=== PATIENT | female | born 1975 | race Two or more races ===

== ENCOUNTER → 2020-02-14 | Emergency (ER) | payer OTHER ==
[~2020-02-14] VITALS: Ht 154.9 cm; Wt 79.5 kg
[~2020-02-14] MED LIST: ACETAMINOPHEN 325 MG TAB PO ONE; ACETAMINOPHEN 500 MG TAB PO ONE
[2020-02-14 20:14] VITALS: BP 136/74
== END | disposition home or self-care (01) ==
LOC: ER 18:04
DX: U07.1 COVID-19 (principal)
CPT/HCPCS: 71045; 87635

== ENCOUNTER 2020-02-17 15:34 | Inpatient (IN) | payer OTHER ==
[~2020-02-17] VITALS: Ht 154.9 cm; Wt 72.2 kg
[2020-02-17] MEDS ORDERED: DOXYCYCLINE 100 MG TAB/CAP PO ONE (16:45)
[2020-02-17] MEDS ORDERED: DexAMETHasone SOD PHOS 10MG/1ML VIAL INJ IV ONE (16:45)
[2020-02-17 17:01] LABS: Basophils # (auto) 0 10 ^3/uL (0-0.2); Basophils % (auto) 0.1 % (0.0-2.0); Eosinophils # (auto) 0 10 ^3/uL (0-0.8); Monocytes # (auto) 0.4 10 ^3/uL (0-1.3); Red Cell Distribution Width 16.2 % (11.8-14.3)
[2020-02-17 17:03] LABS: Hematocrit 37.8 % (36.0-46.0); Hemoglobin 12.3 g/dL (12.2-16.2); Lymphocytes # (auto) 0.6 10 ^3/uL (0.4-5.4); Lymphocytes % (auto) 8.1 % (10.0-50.0); Mean Corpuscular Hemoglobin 25.3 pg (28.0-32.0); Mean Corpuscular Hgb Conc. 32.7 g/dL (32.0-36.0); Mean Corpuscular Volume 77.3 fL (80.0-100.0); Monocytes % (auto) 5.1 % (0.0-12.0); Neutrophils # (auto) 6.2 10 ^3/uL (1.6-8.6); Neutrophils % (auto) 86.7 % (37.0-80.0); Platelet Count (auto) 339 10^3/uL (140-450); Red Blood Cells 4.89 10^6/uL (4.0-5.20); White Blood Cell 7.1 10^3/uL (4.4-10.8)
[2020-02-17 17:05] LABS: Alanine Aminotransferase 45 U/L (13-56); Albumin 3.5 g/dL (3.4-5.0); Anion Gap 10 (5-15); Blood Urea Nitrogen 9 mg/dL (7-18); Calcium 8.7 mg/dL (8.5-10.1); Carbon Dioxide 25 mmol/L (21-32); Chloride 99 mmol/L (98-107); Glucose 240 mg/dL (74-106); INR 0.91 (0.9-1.15); Magnesium 2.5 mg/dL (1.6-2.6); Partial Thromboplastin Time 30.4 sec (23.64-32.05); Potassium 3.1 mmol/L (3.5-5.1); Sodium 134 mmol/L (136-145)
[2020-02-17 17:10] LABS: Alkaline Phosphatase 100 U/L (45-117); Aspartate Aminotransferase 34 U/L (15-37); BUN/Creatinine Ratio 11.5; Bilirubin, Total 0.4 mg/dL (0.2-1.0); GFR African American 102 mL/min; GFR Non-African American 85 mL/min; Total Protein 9.1 g/dL (6.4-8.2)
[2020-02-17] MEDS ORDERED: HYDROcodone-ACET 5/325MG TAB PO PRN (17:15)
[2020-02-17] MEDS ORDERED: TEMAZEPAM 15 MG CAP PO PRN (17:15)
[2020-02-17] MEDS ORDERED: HYDROmorphone HCL 2 MG/ML VL IV PRN ×2 (17:15→17:30)
[2020-02-17] MEDS ORDERED: MORPHINE SULF INJ 2 MG/ML SYRINGE 1ML IV PRN ×2 (17:15)
[2020-02-17] MEDS ORDERED: ACETAMINOPHEN 325 MG TAB PO PRN (17:15)
[2020-02-17] MEDS ORDERED: NITROGLYCERIN 0.4 MG SL TAB SL PRN (17:15)
[2020-02-17] MEDS ORDERED: POTASSIUM CHL 20 Meq TABLET PO ONE (17:30)
[2020-02-17 17:39] LABS: CRP High Sensitivity 12.2 mg/dL (< 0.3)
[2020-02-17] MEDS: ACETAMINOPHEN 500 MG TAB PO PRN (18:43)
[2020-02-17] MEDS ORDERED: DEXTROSE (50%) 50ML SYRG IV PRN (21:45)
[2020-02-17] MEDS: SODIUM CHLOR 0.9% PF (SALINE LOCK) 10ML VIAL/SYR IV SCH (21:45)
[2020-02-17] MEDS: DOXYCYCLINE 100 MG TAB/CAP PO SCH (21:45)
[2020-02-17] MEDS: ENOXAPARIN SOD 40 MG/0.4 ML SYRINGE SC SCH (21:45)
[2020-02-17 22:00] VITALS: BP 137/86
[2020-02-17] MEDS ORDERED: cefTRIAXone 1GM/50ML D5W 50 ML IV ONE (22:00)
[2020-02-17] MEDS: ALBUTEROL SULF HFA 90MCG INH 200DOSE IN SCH (22:00)
[2020-02-17] MEDS: ACCU-CHEK COMFORT CURVE STRIP VI SCH (22:34)
[2020-02-17] MEDS ORDERED: REMDESIVIR 200 MG in NS 210ml LOADING DOSE ADULT IV ONE (22:45)
[2020-02-17] MEDS: InsuLIN REG 1unit/0.01ml Soln (100units/ml) SC SCH (22:46)
[2020-02-17 23:55] VITALS: BP 137/82
[2020-02-18] VITALS (10 sets, daily range): BP systolic 125–145; BP diastolic 69–85
[2020-02-18 06:02] LABS: Basophils # (auto) 0 10 ^3/uL (0-0.2); Eosinophils # (auto) 0 10 ^3/uL (0-0.8); Lymphocytes # (auto) 0.5 10 ^3/uL (0.4-5.4); Lymphocytes % (auto) 7.7 % (10.0-50.0); Monocytes # (auto) 0.3 10 ^3/uL (0-1.3); Neutrophils # (auto) 5.6 10 ^3/uL (1.6-8.6); Red Blood Cells 4.68 10^6/uL (4.0-5.20); White Blood Cell 6.4 10^3/uL (4.4-10.8)
[2020-02-18 06:04] LABS: Basophils % (auto) 0.2 % (0.0-2.0); Hematocrit 36.5 % (36.0-46.0); Hemoglobin 11.7 g/dL (12.2-16.2); Mean Corpuscular Volume 78.1 fL (80.0-100.0); Monocytes % (auto) 4.5 % (0.0-12.0); Neutrophils % (auto) 87.6 % (37.0-80.0); Platelet Count (auto) 342 10^3/uL (140-450); Red Cell Distribution Width 16.1 % (11.8-14.3)
[2020-02-18] MEDS ORDERED: FAMOTIDINE 20 MG TAB PO ONE (06:15)
[2020-02-18] MEDS ORDERED: POLYETHYLENE GLYCOL 17 GM PWDR PO PRN (06:15)
[2020-02-18 06:27] LABS: Albumin 2.8 g/dL (3.4-5.0); BUN/Creatinine Ratio 17.6; Calcium 8.4 mg/dL (8.5-10.1); Potassium 4.1 mmol/L (3.5-5.1)
[2020-02-18 06:30] LABS: Bilirubin, Total 0.3 mg/dL (0.2-1.0); Total Protein 8.1 g/dL (6.4-8.2)
[2020-02-18] MEDS: ALBUTEROL SULF HFA 90MCG INH 200DOSE IN SCH ×3 (06:35→21:23)
[2020-02-18] MEDS: ACCU-CHEK COMFORT CURVE STRIP VI SCH ×4 (06:36→21:40)
[2020-02-18] MEDS: SODIUM CHLOR 0.9% PF (SALINE LOCK) 10ML VIAL/SYR IV SCH ×3 (06:36→22:00)
[2020-02-18] MEDS: InsuLIN REG 1unit/0.01ml Soln (100units/ml) SC SCH ×4 (06:37→21:41)
[2020-02-18 06:53] LABS: Cholesterol 141 mg/dL (< 200); HDL Cholesterol 40 mg/dL (40-59); LDL Cholesterol 78 mg/dL (< 100); Triglycerides 206 mg/dL (< 150)
[2020-02-18] MEDS: ACETAMINOPHEN 500 MG TAB PO PRN ×2 (06:56→16:17)
[2020-02-18 08:48] LABS: Urine Bacteria NONE SEEN /hpf (None Seen); Urine Blood 2+ /uL (Negative); Urine Mucus FEW (None Seen); Urine Specific Gravity 1.028 (1.001-1.035); Urine WBC 2 /hpf (0 - 5)
[2020-02-18] MEDS: methylPREDNISolone SOD SUCC 40 MG/ML VL IV SCH ×2 (09:08→21:22)
[2020-02-18] MEDS: DOXYCYCLINE 100 MG TAB/CAP PO SCH ×2 (09:09→21:22)
[2020-02-18] MEDS: FAMOTIDINE 20 MG TAB PO SCH (09:09)
[2020-02-18] MEDS: ZINC SULFATE 220mg CAP or TAB PO SCH (09:09)
[2020-02-18] MEDS: ASCORBIC ACID 1,000 MG TAB PO SCH (09:09)
[2020-02-18] MEDS: ENOXAPARIN SOD 40 MG/0.4 ML SYRINGE SC SCH ×2 (09:10→21:22)
[2020-02-18] MEDS ORDERED: DexAMETHasone SOD PHOS 4 MG/1ML SDV INJ IV SCH (10:00)
[2020-02-18] MEDS ORDERED: CHOLECALCIFEROL (VITD3) 1,000UNIT=25mCg TAB PO SCH (10:00)
[2020-02-18] MEDS ORDERED: CHOLECALCIFEROL (VITD3) 1,000UNIT=25mCg TAB PO ONE (10:30)
[2020-02-18] MEDS: ERGOCALCIFEROL 50,000 UNIT(1.25MG) CAP PO SCH (11:23)
[2020-02-18 11:38] LABS: Folate (Folic Acid) 14.47 ng/mL (5.38-24)
[2020-02-18] MEDS: REMDESIVIR 100mg in NS 230ml DAILYx4DAYS (NO VENT) IV SCH (17:26)
[2020-02-18] MEDS: cefTRIAXone 1GM/50ML D5W 50 ML IV SCH (21:23)
[2020-02-18] MEDS: ONDANSETRON HCL 4 MG/2 ML VIAL IV PRN (22:35)
[2020-02-19 05:00] VITALS: BP 127/74
[2020-02-19] MEDS: ONDANSETRON HCL 4 MG/2 ML VIAL IV PRN ×2 (05:01→05:03)
[2020-02-19] MEDS: ALBUTEROL SULF HFA 90MCG INH 200DOSE IN SCH ×3 (05:30→21:40)
[2020-02-19] MEDS: SODIUM CHLOR 0.9% PF (SALINE LOCK) 10ML VIAL/SYR IV SCH ×3 (06:19→21:34)
[2020-02-19] MEDS ORDERED: FUROSEMIDE 40 MG/4 ML VIAL IV SCH (07:00)
[2020-02-19] MEDS: InsuLIN REG 1unit/0.01ml Soln (100units/ml) SC SCH ×4 (08:29→21:40)
[2020-02-19] MEDS: ACCU-CHEK COMFORT CURVE STRIP VI SCH ×4 (08:29→21:36)
[2020-02-19 08:34] LABS: Basophils # (auto) 0 10 ^3/uL (0-0.2); Eosinophils # (auto) 0 10 ^3/uL (0-0.8); Lymphocytes # (auto) 0.6 10 ^3/uL (0.4-5.4); Monocytes # (auto) 0.4 10 ^3/uL (0-1.3)
[2020-02-19 08:37] LABS: Basophils % (auto) 0.2 % (0.0-2.0); Hematocrit 36.8 % (36.0-46.0); Lymphocytes % (auto) 7.8 % (10.0-50.0); Mean Corpuscular Hemoglobin 25.5 pg (28.0-32.0); Mean Corpuscular Hgb Conc. 32.6 g/dL (32.0-36.0); Mean Corpuscular Volume 78.3 fL (80.0-100.0); Monocytes % (auto) 5.5 % (0.0-12.0); Neutrophils # (auto) 6.9 10 ^3/uL (1.6-8.6); Neutrophils % (auto) 86.5 % (37.0-80.0); Platelet Count (auto) 468 10^3/uL (140-450); Red Cell Distribution Width 16.2 % (11.8-14.3)
[2020-02-19 08:50] LABS: Albumin 2.9 g/dL (3.4-5.0); Calcium 8.8 mg/dL (8.5-10.1); Potassium 3.5 mmol/L (3.5-5.1)
[2020-02-19 09:00] VITALS: BP 112/68
[2020-02-19 09:03] LABS: BUN/Creatinine Ratio 21.9; Bilirubin, Total 0.3 mg/dL (0.2-1.0); CRP High Sensitivity 11.2 mg/dL (< 0.3); Total Protein 8.5 g/dL (6.4-8.2)
[2020-02-19] MEDS: ZINC SULFATE 220mg CAP or TAB PO SCH (09:34)
[2020-02-19] MEDS: methylPREDNISolone SOD SUCC 40 MG/ML VL IV SCH ×2 (09:34→21:33)
[2020-02-19] MEDS: ENOXAPARIN SOD 40 MG/0.4 ML SYRINGE SC SCH ×2 (09:34→21:34)
[2020-02-19] MEDS: CHOLECALCIFEROL (VITD3) 1,000UNIT=25mCg TAB PO SCH (09:34)
[2020-02-19] MEDS: POTASSIUM CHL 20 Meq TABLET PO SCH (09:34)
[2020-02-19] MEDS: ASCORBIC ACID 1,000 MG TAB PO SCH (09:35)
[2020-02-19] MEDS: FAMOTIDINE 20 MG TAB PO SCH (09:35)
[2020-02-19] MEDS: DOXYCYCLINE 100 MG TAB/CAP PO SCH ×2 (09:35→21:32)
[2020-02-19] MEDS ORDERED: CHOLECALCIFEROL (VITD3) 1,000UNIT=25mCg TAB PO SCH (10:00)
[2020-02-19 12:35] VITALS: BP 127/80
[2020-02-19 17:00] VITALS: BP 138/76
[2020-02-19] MEDS: REMDESIVIR 100mg in NS 230ml DAILYx4DAYS (NO VENT) IV SCH (17:20)
[2020-02-19] MEDS: cefTRIAXone 1GM/50ML D5W 50 ML IV SCH (21:28)
[2020-02-19] MEDS: ACETAMINOPHEN 500 MG TAB PO PRN (21:33)
[2020-02-19 22:00] VITALS: BP 144/87
[2020-02-20] VITALS (7 sets, daily range): BP systolic 119–135; BP diastolic 73–88
[2020-02-20] MEDS: BUDESONIDE (INHALATION) 0.5 MG/2 ML NEB NEB SCH ×3 (00:55→21:15)
[2020-02-20] MEDS: SODIUM CHLOR 0.9% PF (SALINE LOCK) 10ML VIAL/SYR IV SCH ×3 (05:36→22:09)
[2020-02-20 05:50] LABS: Albumin 2.7 g/dL (3.4-5.0); Calcium 8.6 mg/dL (8.5-10.1); Potassium 4.3 mmol/L (3.5-5.1)
[2020-02-20 05:53] LABS: Bilirubin, Total 0.4 mg/dL (0.2-1.0); Total Protein 7.8 g/dL (6.4-8.2)
[2020-02-20] MEDS: ALBUTEROL SULF HFA 90MCG INH 200DOSE IN SCH ×3 (06:17→22:15)
[2020-02-20] MEDS: FUROSEMIDE 40 MG/4 ML VIAL IV SCH (06:32)
[2020-02-20 08:04] LABS: BUN/Creatinine Ratio 29.4
[2020-02-20] MEDS: InsuLIN REG 1unit/0.01ml Soln (100units/ml) SC SCH ×4 (08:30→22:08)
[2020-02-20] MEDS: ACCU-CHEK COMFORT CURVE STRIP VI SCH ×4 (08:41→22:10)
[2020-02-20] MEDS: methylPREDNISolone SOD SUCC 40 MG/ML VL IV SCH ×2 (10:06→22:09)
[2020-02-20] MEDS: ZINC SULFATE 220mg CAP or TAB PO SCH (10:07)
[2020-02-20] MEDS: POTASSIUM CHL 20 Meq TABLET PO SCH (10:07)
[2020-02-20] MEDS: FAMOTIDINE 20 MG TAB PO SCH (10:07)
[2020-02-20] MEDS: CHOLECALCIFEROL (VITD3) 1,000UNIT=25mCg TAB PO SCH (10:08)
[2020-02-20] MEDS: ASCORBIC ACID 1,000 MG TAB PO SCH (10:08)
[2020-02-20] MEDS: ENOXAPARIN SOD 40 MG/0.4 ML SYRINGE SC SCH ×2 (10:08→22:10)
[2020-02-20] MEDS: DOXYCYCLINE 100 MG TAB/CAP PO SCH ×2 (10:08→22:08)
[2020-02-20] MEDS: REMDESIVIR 100mg in NS 230ml DAILYx4DAYS (NO VENT) IV SCH (17:30)
[2020-02-20] MEDS: cefTRIAXone 1GM/50ML D5W 50 ML IV SCH (23:15)
[2020-02-21 05:00] VITALS: BP 125/74
[2020-02-21] MEDS: InsuLIN REG 1unit/0.01ml Soln (100units/ml) SC SCH ×4 (06:17→21:44)
[2020-02-21] MEDS: ACCU-CHEK COMFORT CURVE STRIP VI SCH ×4 (06:18→21:42)
[2020-02-21] MEDS: SODIUM CHLOR 0.9% PF (SALINE LOCK) 10ML VIAL/SYR IV SCH ×3 (06:18→21:41)
[2020-02-21] MEDS: FUROSEMIDE 40 MG/4 ML VIAL IV SCH ×2 (06:18→21:43)
[2020-02-21] MEDS: ALBUTEROL SULF HFA 90MCG INH 200DOSE IN SCH ×2 (06:58→22:00)
[2020-02-21 07:59] LABS: Mean Corpuscular Hemoglobin 25.5 pg (28.0-32.0)
[2020-02-21 08:01] LABS: Hematocrit 43.1 % (36.0-46.0); Hemoglobin 13.6 g/dL (12.2-16.2); Mean Corpuscular Hgb Conc. 31.4 g/dL (32.0-36.0); Mean Corpuscular Volume 81.3 fL (80.0-100.0); Platelet Count (auto) 609 10^3/uL (140-450); Red Blood Cells 5.31 10^6/uL (4.0-5.20); Red Cell Distribution Width 16.5 % (11.8-14.3); White Blood Cell 9.6 10^3/uL (4.4-10.8)
[2020-02-21 08:05] LABS: Band Neutrophils % (manual) 0; Basophils % (manual) 0 (0.0-2.0); Blast Cells 0; Eosinophils % (manual) 0 (0-7); Metamyelocytes % 0; Myelocytes % 0; Promyelocytes % 0; Reactive Lymphocytes 0
[2020-02-21 08:18] LABS: Calcium 8.8 mg/dL (8.5-10.1); Potassium 4.4 mmol/L (3.5-5.1)
[2020-02-21 08:21] LABS: BUN/Creatinine Ratio 29.7; Bilirubin, Total 0.5 mg/dL (0.2-1.0); Total Protein 8.6 g/dL (6.4-8.2)
[2020-02-21 08:32] LABS: Lymphocytes % (manual) 12 (10.0-50.0); Monocytes % (manual) 4 (0-12)
[2020-02-21 09:00] VITALS: BP 90/60
[2020-02-21] MEDS: methylPREDNISolone SOD SUCC 40 MG/ML VL IV SCH ×2 (09:25→21:42)
[2020-02-21] MEDS: DOXYCYCLINE 100 MG TAB/CAP PO SCH ×2 (09:25→21:42)
[2020-02-21] MEDS: ASCORBIC ACID 1,000 MG TAB PO SCH (09:25)
[2020-02-21] MEDS: FAMOTIDINE 20 MG TAB PO SCH (09:25)
[2020-02-21] MEDS: ZINC SULFATE 220mg CAP or TAB PO SCH (09:25)
[2020-02-21] MEDS: POTASSIUM CHL 20 Meq TABLET PO SCH (09:25)
[2020-02-21] MEDS: CHOLECALCIFEROL (VITD3) 1,000UNIT=25mCg TAB PO SCH (09:26)
[2020-02-21] MEDS: ENOXAPARIN SOD 40 MG/0.4 ML SYRINGE SC SCH ×2 (09:26→21:42)
[2020-02-21 11:29] VITALS: BP 94/61
[2020-02-21] MEDS: BUDESONIDE (INHALATION) 0.5 MG/2 ML NEB NEB SCH (11:38)
[2020-02-21 13:00] VITALS: BP 119/76
[2020-02-21 17:00] VITALS: BP 111/68
[2020-02-21] MEDS: REMDESIVIR 100mg in NS 230ml DAILYx4DAYS (NO VENT) IV SCH (17:00)
[2020-02-21] MEDS: cefTRIAXone 1GM/50ML D5W 50 ML IV SCH (21:41)
[2020-02-21 22:00] VITALS: BP 123/70
[2020-02-22] VITALS (11 sets, daily range): BP systolic 96–119; BP diastolic 60–86
[2020-02-22] MEDS: BUDESONIDE (INHALATION) 0.5 MG/2 ML NEB NEB SCH ×2 (00:16→06:55)
[2020-02-22] MEDS: SODIUM CHLOR 0.9% PF (SALINE LOCK) 10ML VIAL/SYR IV SCH ×3 (06:28→22:03)
[2020-02-22] MEDS: ACCU-CHEK COMFORT CURVE STRIP VI SCH ×4 (06:29→22:04)
[2020-02-22] MEDS: FUROSEMIDE 40 MG/4 ML VIAL IV SCH (06:29)
[2020-02-22] MEDS: InsuLIN REG 1unit/0.01ml Soln (100units/ml) SC SCH ×4 (06:37→22:00)
[2020-02-22] MEDS: ALBUTEROL SULF HFA 90MCG INH 200DOSE IN SCH ×3 (06:55→22:08)
[2020-02-22] MEDS: CHOLECALCIFEROL (VITD3) 1,000UNIT=25mCg TAB PO SCH (10:00)
[2020-02-22] MEDS: methylPREDNISolone SOD SUCC 40 MG/ML VL IV SCH ×2 (10:01→22:03)
[2020-02-22] MEDS: DOXYCYCLINE 100 MG TAB/CAP PO SCH (10:01)
[2020-02-22] MEDS: ZINC SULFATE 220mg CAP or TAB PO SCH (10:01)
[2020-02-22] MEDS: POTASSIUM CHL 20 Meq TABLET PO SCH (10:01)
[2020-02-22] MEDS: FAMOTIDINE 20 MG TAB PO SCH (10:01)
[2020-02-22] MEDS: ASCORBIC ACID 1,000 MG TAB PO SCH (10:10)
[2020-02-22] MEDS: ENOXAPARIN SOD 40 MG/0.4 ML SYRINGE SC SCH (10:10)
[2020-02-22] MEDS: ENOXAPARIN SOD 80 MG/0.8ML SYRINGE SC SCH (18:33)
[2020-02-22] MEDS ORDERED: INSULIN LANTUS (GLARGINE) 1 /0.01ml (100units/ml) SC SCH (22:00)
[2020-02-22] MEDS: cefTRIAXone 1GM/50ML D5W 50 ML IV SCH (22:03)
[2020-02-23] MEDS: BUDESONIDE (INHALATION) 0.5 MG/2 ML NEB NEB SCH ×3 (01:40→23:31)
[2020-02-23] MEDS: ACETYLCYSTEINE 20%(200MG/ML) SOL 4ML NEB SCH ×2 (01:40→11:10)
[2020-02-23 05:00] VITALS: BP 104/71
[2020-02-23] MEDS: SODIUM CHLOR 0.9% PF (SALINE LOCK) 10ML VIAL/SYR IV SCH ×3 (06:10→22:20)
[2020-02-23] MEDS: ENOXAPARIN SOD 80 MG/0.8ML SYRINGE SC SCH ×2 (06:19→17:44)
[2020-02-23] MEDS: ACCU-CHEK COMFORT CURVE STRIP VI SCH ×4 (06:19→22:00)
[2020-02-23] MEDS: ALBUTEROL SULF HFA 90MCG INH 200DOSE IN SCH ×3 (06:20→23:31)
[2020-02-23 06:38] LABS: Hemoglobin 11.9 g/dL (12.2-16.2)
[2020-02-23 06:40] LABS: Hematocrit 36.6 % (36.0-46.0); Mean Corpuscular Hemoglobin 25.5 pg (28.0-32.0); Mean Corpuscular Hgb Conc. 32.6 g/dL (32.0-36.0); Mean Corpuscular Volume 78.1 fL (80.0-100.0); Platelet Count (auto) 741 10^3/uL (140-450); Red Blood Cells 4.69 10^6/uL (4.0-5.20); Red Cell Distribution Width 16.2 % (11.8-14.3)
[2020-02-23 06:58] LABS: Band Neutrophils % (manual) 0; Basophils % (manual) 0 (0.0-2.0); Blast Cells 0; Eosinophils % (manual) 0 (0-7); Metamyelocytes % 0; Myelocytes % 0; Promyelocytes % 0; Reactive Lymphocytes 0
[2020-02-23 07:01] LABS: Potassium 5.4 mmol/L (3.5-5.1)
[2020-02-23 07:18] LABS: Albumin 3.1 g/dL (3.4-5.0); BUN/Creatinine Ratio 32.6; Bilirubin, Total 0.4 mg/dL (0.2-1.0); CRP High Sensitivity 1.07 mg/dL (< 0.3); Total Protein 7.7 g/dL (6.4-8.2)
[2020-02-23] MEDS: InsuLIN REG 1unit/0.01ml Soln (100units/ml) SC SCH ×4 (07:37→23:01)
[2020-02-23 07:54] LABS: Lymphocytes % (manual) 9 (10.0-50.0); Monocytes % (manual) 4 (0-12)
[2020-02-23 08:00] VITALS: BP 109/70
[2020-02-23] MEDS ORDERED: FUROSEMIDE 40 MG/4 ML VIAL IV SCH (10:00)
[2020-02-23] MEDS: CHOLECALCIFEROL (VITD3) 1,000UNIT=25mCg TAB PO SCH (10:09)
[2020-02-23] MEDS: ASCORBIC ACID 1,000 MG TAB PO SCH (10:09)
[2020-02-23] MEDS: methylPREDNISolone SOD SUCC 40 MG/ML VL IV SCH ×2 (10:09→22:20)
[2020-02-23] MEDS: ZINC SULFATE 220mg CAP or TAB PO SCH (10:09)
[2020-02-23] MEDS: FAMOTIDINE 20 MG TAB PO SCH (10:32)
[2020-02-23 12:00] VITALS: BP 104/67
[2020-02-23] MEDS ORDERED: guaiFENesin 200 MG/10 ML UD PO PRN (15:15)
[2020-02-23 16:52] VITALS: BP 126/55
[2020-02-23 17:00] VITALS: BP 126/55
[2020-02-23 22:00] VITALS: BP 122/66
[2020-02-23] MEDS: cefTRIAXone 1GM/50ML D5W 50 ML IV SCH (22:20)
[2020-02-23] MEDS: INSULIN 70/30 1unit/0.01ml Susp (100units/ml) SC SCH (22:58)
[2020-02-24 05:00] VITALS: BP 107/63
[2020-02-24 05:46] LABS: Albumin 2.9 g/dL (3.4-5.0); Calcium 8.7 mg/dL (8.5-10.1); Potassium 4.7 mmol/L (3.5-5.1)
[2020-02-24 05:49] LABS: BUN/Creatinine Ratio 35.1; Bilirubin, Total 0.4 mg/dL (0.2-1.0); Total Protein 7.6 g/dL (6.4-8.2)
[2020-02-24] MEDS: ALBUTEROL SULF HFA 90MCG INH 200DOSE IN SCH ×3 (06:35→21:20)
[2020-02-24] MEDS: ENOXAPARIN SOD 80 MG/0.8ML SYRINGE SC SCH ×2 (06:40→18:04)
[2020-02-24] MEDS: ACCU-CHEK COMFORT CURVE STRIP VI SCH ×4 (06:49→22:19)
[2020-02-24] MEDS: SODIUM CHLOR 0.9% PF (SALINE LOCK) 10ML VIAL/SYR IV SCH ×3 (06:52→22:18)
[2020-02-24 08:00] VITALS: BP 96/58
[2020-02-24] MEDS: InsuLIN REG 1unit/0.01ml Soln (100units/ml) SC SCH ×4 (08:14→22:36)
[2020-02-24] MEDS: CHOLECALCIFEROL (VITD3) 1,000UNIT=25mCg TAB PO SCH (09:35)
[2020-02-24] MEDS: ASCORBIC ACID 1,000 MG TAB PO SCH (09:35)
[2020-02-24] MEDS: FAMOTIDINE 20 MG TAB PO SCH (09:35)
[2020-02-24] MEDS: ZINC SULFATE 220mg CAP or TAB PO SCH (09:35)
[2020-02-24] MEDS: methylPREDNISolone SOD SUCC 40 MG/ML VL IV SCH ×3 (09:36→22:18)
[2020-02-24] MEDS: INSULIN 70/30 1unit/0.01ml Susp (100units/ml) SC SCH ×2 (09:47→22:38)
[2020-02-24] MEDS: BUDESONIDE (INHALATION) 0.5 MG/2 ML NEB NEB SCH ×2 (09:55→21:20)
[2020-02-24 12:00] VITALS: BP 97/56
[2020-02-24 16:45] VITALS: BP 109/68
[2020-02-24] MEDS: ACETAMINOPHEN 650 mg PER 20 mL UD PO SCH (20:30)
[2020-02-24] MEDS: diphenhdrAMINE HCL 50 MG/1 ML VL IV SCH (20:30)
[2020-02-24] MEDS: TOCILIZUMAB 400 MG in SODIUM CHL 0.9% 80 ML IV SCH (21:00)
[2020-02-24 22:00] VITALS: BP 103/59
[2020-02-24] MEDS ORDERED: PATIENTS OWN MEDICATION (ACTEMRA 400 MG) IV SCH (22:00)
[2020-02-24] MEDS: cefTRIAXone 1GM/50ML D5W 50 ML IV SCH (22:18)
[2020-02-25 02:18] VITALS: BP 103/59
[2020-02-25 05:00] VITALS: BP 93/55
[2020-02-25] MEDS: BUDESONIDE (INHALATION) 0.5 MG/2 ML NEB NEB SCH ×2 (06:11→22:00)
[2020-02-25] MEDS: ALBUTEROL SULF HFA 90MCG INH 200DOSE IN SCH ×3 (06:12→22:00)
[2020-02-25] MEDS: ACCU-CHEK COMFORT CURVE STRIP VI SCH ×4 (06:48→21:38)
[2020-02-25] MEDS: SODIUM CHLOR 0.9% PF (SALINE LOCK) 10ML VIAL/SYR IV SCH ×3 (06:48→22:00)
[2020-02-25] MEDS: ENOXAPARIN SOD 80 MG/0.8ML SYRINGE SC SCH ×2 (06:48→17:59)
[2020-02-25] MEDS: methylPREDNISolone SOD SUCC 40 MG/ML VL IV SCH ×3 (08:30→22:31)
[2020-02-25] MEDS: diphenhdrAMINE HCL 50 MG/1 ML VL IV SCH ×2 (08:30→22:32)
[2020-02-25] MEDS: ACETAMINOPHEN 650 mg PER 20 mL UD PO SCH ×2 (08:30→22:32)
[2020-02-25] MEDS: TOCILIZUMAB 400 MG in SODIUM CHL 0.9% 80 ML IV SCH ×2 (09:00→23:05)
[2020-02-25 09:02] VITALS: BP 98/58
[2020-02-25] MEDS: FAMOTIDINE 20 MG TAB PO SCH (10:12)
[2020-02-25] MEDS: ZINC SULFATE 220mg CAP or TAB PO SCH (10:12)
[2020-02-25] MEDS: CHOLECALCIFEROL (VITD3) 1,000UNIT=25mCg TAB PO SCH (10:13)
[2020-02-25] MEDS: ERGOCALCIFEROL 50,000 UNIT(1.25MG) CAP PO SCH (10:13)
[2020-02-25] MEDS: ASCORBIC ACID 1,000 MG TAB PO SCH (10:13)
[2020-02-25] MEDS: InsuLIN REG 1unit/0.01ml Soln (100units/ml) SC SCH ×3 (11:30→21:50)
[2020-02-25] MEDS: INSULIN 70/30 1unit/0.01ml Susp (100units/ml) SC SCH ×2 (12:09→21:49)
[2020-02-25 12:59] VITALS: BP 103/60
[2020-02-25 16:54] VITALS: BP 96/51
[2020-02-25] MEDS: cefTRIAXone 1GM/50ML D5W 50 ML IV SCH (21:51)
[2020-02-25 22:00] VITALS: BP 102/57
[2020-02-26 05:00] VITALS: BP 104/68
[2020-02-26 05:12] LABS: Hematocrit 35.9 % (36.0-46.0); Hemoglobin 11.2 g/dL (12.2-16.2); Mean Corpuscular Hemoglobin 24.8 pg (28.0-32.0); Mean Corpuscular Hgb Conc. 31.2 g/dL (32.0-36.0); Mean Corpuscular Volume 79.4 fL (80.0-100.0); Platelet Count (auto) 638 10^3/uL (140-450); Red Blood Cells 4.53 10^6/uL (4.0-5.20); White Blood Cell 11.1 10^3/uL (4.4-10.8)
[2020-02-26 05:27] LABS: % Iron Saturation 23.9 % (15-50)
[2020-02-26] MEDS: SODIUM CHLOR 0.9% PF (SALINE LOCK) 10ML VIAL/SYR IV SCH ×3 (05:33→21:22)
[2020-02-26] MEDS: ENOXAPARIN SOD 80 MG/0.8ML SYRINGE SC SCH ×2 (05:34→18:25)
[2020-02-26 05:35] LABS: Band Neutrophils % (manual) 0; Basophils % (manual) 0 (0.0-2.0); Blast Cells 0; Eosinophils % (manual) 0 (0-7); Metamyelocytes % 0; Promyelocytes % 0; Reactive Lymphocytes 0
[2020-02-26] MEDS: ACCU-CHEK COMFORT CURVE STRIP VI SCH ×5 (06:17→23:56)
[2020-02-26 06:40] LABS: Lymphocytes % (manual) 3 (10.0-50.0); Monocytes % (manual) 4 (0-12); Myelocytes % 1
[2020-02-26] MEDS: InsuLIN REG 1unit/0.01ml Soln (100units/ml) SC SCH ×4 (06:50→23:56)
[2020-02-26] MEDS: BUDESONIDE (INHALATION) 0.5 MG/2 ML NEB NEB SCH ×2 (06:59→23:03)
[2020-02-26] MEDS: ALBUTEROL SULF HFA 90MCG INH 200DOSE IN SCH ×3 (07:00→21:22)
[2020-02-26 09:00] VITALS: BP 116/64
[2020-02-26] MEDS: ASCORBIC ACID 1,000 MG TAB PO SCH (10:52)
[2020-02-26] MEDS: methylPREDNISolone SOD SUCC 40 MG/ML VL IV SCH (10:52)
[2020-02-26] MEDS: FAMOTIDINE 20 MG TAB PO SCH (10:52)
[2020-02-26] MEDS: ZINC SULFATE 220mg CAP or TAB PO SCH (10:52)
[2020-02-26] MEDS: CHOLECALCIFEROL (VITD3) 1,000UNIT=25mCg TAB PO SCH (10:53)
[2020-02-26] MEDS: INSULIN 70/30 1unit/0.01ml Susp (100units/ml) SC SCH ×2 (10:53→21:38)
[2020-02-26] MEDS: ACETAMINOPHEN 650 mg PER 20 mL UD PO SCH (12:05)
[2020-02-26] MEDS: diphenhdrAMINE HCL 50 MG/1 ML VL IV SCH (12:05)
[2020-02-26] MEDS: TOCILIZUMAB 400 MG in SODIUM CHL 0.9% 80 ML IV SCH (12:38)
[2020-02-26 13:00] VITALS: BP 123/68
[2020-02-26] MEDS ORDERED: DEXTROSE (50%) 50ML SYRG IV PRN (16:00)
[2020-02-26 17:00] VITALS: BP 104/57
[2020-02-26] MEDS: cefTRIAXone 1GM/50ML D5W 50 ML IV SCH (21:22)
[2020-02-26 21:45] VITALS: BP 102/60
[2020-02-27 05:00] VITALS: BP_SYST 67
[2020-02-27] MEDS: InsuLIN REG 1unit/0.01ml Soln (100units/ml) SC SCH ×3 (06:00→17:54)
[2020-02-27] MEDS: ENOXAPARIN SOD 80 MG/0.8ML SYRINGE SC SCH ×2 (06:26→17:55)
[2020-02-27] MEDS: ACCU-CHEK COMFORT CURVE STRIP VI SCH ×3 (06:26→17:55)
[2020-02-27] MEDS: SODIUM CHLOR 0.9% PF (SALINE LOCK) 10ML VIAL/SYR IV SCH ×3 (06:27→23:05)
[2020-02-27] MEDS: ALBUTEROL SULF HFA 90MCG INH 200DOSE IN SCH ×3 (06:30→23:37)
[2020-02-27] MEDS: BUDESONIDE (INHALATION) 0.5 MG/2 ML NEB NEB SCH ×2 (06:30→22:00)
[2020-02-27 09:00] VITALS: BP 93/49
[2020-02-27] MEDS: methylPREDNISolone SOD SUCC 40 MG/ML VL IV SCH (10:38)
[2020-02-27] MEDS: CHOLECALCIFEROL (VITD3) 1,000UNIT=25mCg TAB PO SCH (10:39)
[2020-02-27] MEDS: ZINC SULFATE 220mg CAP or TAB PO SCH (10:39)
[2020-02-27] MEDS: FAMOTIDINE 20 MG TAB PO SCH (10:39)
[2020-02-27] MEDS: ASCORBIC ACID 1,000 MG TAB PO SCH (10:39)
[2020-02-27] MEDS: INSULIN 70/30 1unit/0.01ml Susp (100units/ml) SC SCH ×2 (10:40→23:05)
[2020-02-27 12:57] VITALS: BP 103/57
[2020-02-27 17:00] VITALS: BP 104/63
[2020-02-27 18:57] VITALS: BP 104/63
[2020-02-27 23:02] VITALS: BP 106/66
[2020-02-27] MEDS: cefTRIAXone 1GM/50ML D5W 50 ML IV SCH (23:05)
[2020-02-28] MEDS: ACCU-CHEK COMFORT CURVE STRIP VI SCH ×4 (00:36→18:03)
[2020-02-28] MEDS: InsuLIN REG 1unit/0.01ml Soln (100units/ml) SC SCH ×4 (00:36→18:04)
[2020-02-28 05:12] LABS: Albumin 2.8 g/dL (3.4-5.0); BUN/Creatinine Ratio 29.7; Calcium 8.7 mg/dL (8.5-10.1); Potassium 3.8 mmol/L (3.5-5.1)
[2020-02-28 05:15] LABS: Bilirubin, Total 0.3 mg/dL (0.2-1.0); Total Protein 6.5 g/dL (6.4-8.2)
[2020-02-28 05:22] VITALS: BP 123/78
[2020-02-28] MEDS: BUDESONIDE (INHALATION) 0.5 MG/2 ML NEB NEB SCH ×2 (06:00→22:00)
[2020-02-28] MEDS: SODIUM CHLOR 0.9% PF (SALINE LOCK) 10ML VIAL/SYR IV SCH ×3 (06:34→21:39)
[2020-02-28] MEDS: ENOXAPARIN SOD 80 MG/0.8ML SYRINGE SC SCH ×2 (06:34→18:03)
[2020-02-28] MEDS: ALBUTEROL SULF HFA 90MCG INH 200DOSE IN SCH ×3 (06:34→22:00)
[2020-02-28 09:06] VITALS: BP 92/56
[2020-02-28] MEDS: INSULIN 70/30 1unit/0.01ml Susp (100units/ml) SC SCH ×2 (10:00→21:40)
[2020-02-28] MEDS: ASCORBIC ACID 1,000 MG TAB PO SCH (10:32)
[2020-02-28] MEDS: methylPREDNISolone SOD SUCC 40 MG/ML VL IV SCH (10:32)
[2020-02-28] MEDS: ZINC SULFATE 220mg CAP or TAB PO SCH (10:32)
[2020-02-28] MEDS: FAMOTIDINE 20 MG TAB PO SCH (10:32)
[2020-02-28] MEDS: CHOLECALCIFEROL (VITD3) 1,000UNIT=25mCg TAB PO SCH (10:33)
[2020-02-28 13:14] VITALS: BP 139/75
[2020-02-28 17:32] VITALS: BP 99/54
[2020-02-28 17:59] LABS: Basophils # (auto) 0 10 ^3/uL (0-0.2); Basophils % (auto) 0.1 % (0.0-2.0); Eosinophils # (auto) 0 10 ^3/uL (0-0.8); Hemoglobin 12.2 g/dL (12.2-16.2); Lymphocytes # (auto) 0.4 10 ^3/uL (0.4-5.4); Monocytes # (auto) 0.2 10 ^3/uL (0-1.3); Neutrophils # (auto) 6.3 10 ^3/uL (1.6-8.6)
[2020-02-28 18:01] LABS: Hematocrit 37.6 % (36.0-46.0); Lymphocytes % (auto) 5.6 % (10.0-50.0); Mean Corpuscular Hemoglobin 25.6 pg (28.0-32.0); Mean Corpuscular Hgb Conc. 32.5 g/dL (32.0-36.0); Mean Corpuscular Volume 78.7 fL (80.0-100.0); Monocytes % (auto) 2.5 % (0.0-12.0); Neutrophils % (auto) 91.8 % (37.0-80.0); Nucleated Red Blood Cells % 0.1 %; Platelet Count (auto) 621 10^3/uL (140-450); Red Blood Cells 4.78 10^6/uL (4.0-5.20); Red Cell Distribution Width 16.5 % (11.8-14.3); White Blood Cell 6.9 10^3/uL (4.4-10.8)
[2020-02-28 22:00] VITALS: BP 90/54
[2020-02-29] MEDS: ACCU-CHEK COMFORT CURVE STRIP VI SCH ×4 (00:14→18:23)
[2020-02-29 05:41] VITALS: BP 112/75
[2020-02-29] MEDS: InsuLIN REG 1unit/0.01ml Soln (100units/ml) SC SCH ×4 (06:30→17:30)
[2020-02-29] MEDS: ENOXAPARIN SOD 80 MG/0.8ML SYRINGE SC SCH ×2 (06:54→17:31)
[2020-02-29] MEDS: SODIUM CHLOR 0.9% PF (SALINE LOCK) 10ML VIAL/SYR IV SCH ×3 (06:54→22:00)
[2020-02-29 07:27] LABS: Hemoglobin 11.4 g/dL (12.2-16.2)
[2020-02-29 07:29] LABS: Hematocrit 35.3 % (36.0-46.0); Mean Corpuscular Hemoglobin 25.5 pg (28.0-32.0); Mean Corpuscular Hgb Conc. 32.3 g/dL (32.0-36.0); Mean Corpuscular Volume 78.8 fL (80.0-100.0); Platelet Count (auto) 565 10^3/uL (140-450); Red Blood Cells 4.47 10^6/uL (4.0-5.20); Red Cell Distribution Width 16.2 % (11.8-14.3)
[2020-02-29 07:54] LABS: Albumin 2.8 g/dL (3.4-5.0); Anion Gap 7 (5-15); Blood Urea Nitrogen 21 mg/dL (7-18); Calcium 8.8 mg/dL (8.5-10.1); Carbon Dioxide 26 mmol/L (21-32); Chloride 104 mmol/L (98-107); Glucose 157 mg/dL (74-106); Magnesium 2.4 mg/dL (1.6-2.6); Potassium 3.6 mmol/L (3.5-5.1); Sodium 137 mmol/L (136-145)
[2020-02-29 07:56] LABS: Band Neutrophils % (manual) 0; Basophils % (manual) 0 (0.0-2.0); Blast Cells 0; Metamyelocytes % 0; Promyelocytes % 0; Reactive Lymphocytes 0
[2020-02-29 08:03] LABS: Alanine Aminotransferase 77 U/L (13-56); Alkaline Phosphatase 65 U/L (45-117); Aspartate Aminotransferase 26 U/L (15-37); Bilirubin, Total < 0.1 mg/dL (0.2-1.0); CRP High Sensitivity 0.067 mg/dL (< 0.3); GFR African American 116 mL/min; GFR Non-African American 96 mL/min; Lactate Dehydrogenase 200 U/L (84-246); Total Protein 6.6 g/dL (6.4-8.2)
[2020-02-29 08:08] LABS: Eosinophils % (manual) 1 (0-7); Lymphocytes % (manual) 21 (10.0-50.0); Monocytes % (manual) 4 (0-12); Myelocytes % 2
[2020-02-29 09:00] VITALS: BP 107/68
[2020-02-29] MEDS: BUDESONIDE (INHALATION) 0.5 MG/2 ML NEB NEB SCH ×2 (09:02→23:47)
[2020-02-29] MEDS: ALBUTEROL SULF HFA 90MCG INH 200DOSE IN SCH ×3 (09:02→23:47)
[2020-02-29] MEDS: CHOLECALCIFEROL (VITD3) 1,000UNIT=25mCg TAB PO SCH (10:00)
[2020-02-29] MEDS: FAMOTIDINE 20 MG TAB PO SCH (10:00)
[2020-02-29] MEDS: INSULIN 70/30 1unit/0.01ml Susp (100units/ml) SC SCH ×2 (10:00→22:58)
[2020-02-29] MEDS: ZINC SULFATE 220mg CAP or TAB PO SCH (10:00)
[2020-02-29] MEDS: ASCORBIC ACID 1,000 MG TAB PO SCH (10:00)
[2020-02-29] MEDS: methylPREDNISolone SOD SUCC 40 MG/ML VL IV SCH (10:00)
[2020-02-29 13:00] VITALS: BP 107/70
[2020-02-29 16:58] VITALS: BP 104/52
[2020-02-29 22:19] VITALS: BP 94/63
[2020-03-01] MEDS: InsuLIN REG 1unit/0.01ml Soln (100units/ml) SC SCH ×4 (00:32→18:00)
[2020-03-01] MEDS: ACCU-CHEK COMFORT CURVE STRIP VI SCH ×4 (00:32→18:00)
[2020-03-01 05:00] VITALS: BP 118/63
[2020-03-01] MEDS: SODIUM CHLOR 0.9% PF (SALINE LOCK) 10ML VIAL/SYR IV SCH ×2 (06:16→14:12)
[2020-03-01] MEDS: ENOXAPARIN SOD 80 MG/0.8ML SYRINGE SC SCH ×2 (06:16→18:00)
[2020-03-01] MEDS: BUDESONIDE (INHALATION) 0.5 MG/2 ML NEB NEB SCH (08:43)
[2020-03-01] MEDS: ALBUTEROL SULF HFA 90MCG INH 200DOSE IN SCH ×2 (08:43→14:45)
[2020-03-01 09:17] VITALS: BP 105/72
[2020-03-01] MEDS: CHOLECALCIFEROL (VITD3) 1,000UNIT=25mCg TAB PO SCH (09:42)
[2020-03-01] MEDS: ZINC SULFATE 220mg CAP or TAB PO SCH (09:43)
[2020-03-01] MEDS: methylPREDNISolone SOD SUCC 40 MG/ML VL IV SCH (09:43)
[2020-03-01] MEDS: FAMOTIDINE 20 MG TAB PO SCH (09:43)
[2020-03-01] MEDS: ASCORBIC ACID 1,000 MG TAB PO SCH (09:43)
[2020-03-01] MEDS: INSULIN 70/30 1unit/0.01ml Susp (100units/ml) SC SCH (10:00)
[2020-03-01 12:30] VITALS: BP 101/60
[2020-03-01] MEDS ORDERED: ALBUAER3 IN (13:07)
[2020-03-01] MEDS ORDERED: BLOO1KIT60 XX (13:07)
[2020-03-01] MEDS ORDERED: BUDE1AER5 IN (13:07)
[2020-03-01] MEDS ORDERED: ERGO1CAP23 PO (13:07)
[2020-03-01] MEDS ORDERED: APIX5TAB PO (13:07)
[2020-03-01] MEDS ORDERED: CHOL1000 PO (13:07)
[2020-03-01 16:42] VITALS: BP 101/60
== END 2020-03-01 18:15 | disposition home health service (06) | DRG 871 ==
LOC: ER 15:34 → EAST 15:35 → TELE-EAST 18:25
PROVIDERS: ADMIT Internal Medicine; ATTEND Internal Medicine
PROC: 30233K1 Transfusion of Nonautologous Frozen Plasma into Peripheral Vein, Percutaneous Approach (ICD-10-PCS; principal; 2020-02-22)
DX: A41.89 Other specified sepsis (principal); J12.89 Other viral pneumonia; J96.01 Acute respiratory failure with hypoxia; U07.1 COVID-19; E11.65 Type 2 diabetes mellitus with hyperglycemia; E55.9 Vitamin D deficiency, unspecified; E66.9 Obesity, unspecified; E87.6 Hypokalemia; Z83.3 Family history of diabetes mellitus; Z90.49 Acquired absence of other specified parts of digestive tract; Z68.30 Body mass index [BMI] 30.0-30.9, adult
CPT/HCPCS: 36415; 36600; 71045; 80053; 80061; 81001; 82043; 82306; 82607; 82728; 82746; 82805; 82962; 83036; 83540; 83550; 83605; 83615; 83735; 83880; 84133; 84443; 84484; 84702; 85007; 85025; 85027; 85379; 85610; 85652; 85730; 86141; 86850; 86900; 86901; 87040; 87070; 87086; 87804; 87880; 94640; 99291; G0378; J0696; J1100; J1815; J2405